=== PATIENT | female | born 1995 | race Caucasian/White ===

== ENCOUNTER 2018-04-25 21:29 | Emergency (ER) | payer OTHER ==
[~2018-04-25] VITALS: Ht 165.1 cm; Wt 72.1 kg
[~2018-04-25 21:29] MED LIST: PREN-385 PO
[2018-04-25 21:30] VITALS: BP 130/76
--- NOTE | 2018-04-25 21:40 | NUR ---
CO RIGHT 8/ HAND PAIN THAT RADIATES UP ARM S/P HITTING ARM AGAINST WALL WHILE PLAY-FIGHTING WITH LITTLE SISTER 1 HOUR AGO. -- BRUSING AND SWELLING NOTED TO WRIST. -- CAP REFILL <3 SECONDS, RADIAL PULSE STRONG. -- FINGER AND WRIST MOVEMENT LIMITED. -- PMH: DENIES -- RX: DENIES
--- NOTE | 2018-04-25 21:40 | NUR ---
PT AMBULATED TO BED 11
--- NOTE | 2018-04-25 22:37 | NUR ---
XRAY AT BEDSIDE.
--- NOTE | 2018-04-25 22:47 | NUR ---
PER ORDER FROM DR MCHUGH, THUMB SPICA SPLINT APPLIED TO PT R HAND, WRAPPED IN SHADE WRAP. +CSM
--- NOTE | 2018-04-25 23:02 | NUR ---
PATIENT WAITING IN LOBBY FOR CD.
[2018-04-25 23:05] VITALS: BP 124/79
--- NOTE | 2018-04-25 23:05 | NUR ---
Patient discharged with v/s stable. Written and verbal after care instructions given and explained. Patient alert, oriented and verbalized understanding of instructions. Ambulatory with steady gait. All questions addressed prior to discharge. ID band removed. Patient advised to follow up with PMD. Rx of IBUPROFEN 800MG given. Patient educated on indication of medication including possible reaction and side effects. Opportunity to ask questions provided and answered.
== END 2018-04-25 23:05 | disposition home or self-care (01) ==
LOC: MED 21:29
DX: M25.531 Pain in right wrist (principal); M79.641 Pain in right hand; Z79.899 Other long term (current) drug therapy
CPT/HCPCS: 73110; 73130; 99283; Q0092

== ENCOUNTER 2021-02-24 14:28 | Emergency (ER) | payer OTHER ==
[~2021-02-24] VITALS: Ht 165.1 cm; Wt 79.8 kg
[2021-02-24 15:01] VITALS: BP 137/62
[2021-02-24] MEDS ORDERED: AMOX-1000 PO (15:40)
[2021-02-24] MEDS ORDERED: IBUP-2213 PO (15:40)
--- NOTE | 2021-02-24 16:30 | NUR ---
ATTEMPTED TO D/C PT, NO ANSWER IN LOBBY/TENT
--- NOTE | 2021-02-24 16:45 | NUR ---
PT CLEARED FOR DISCHARGE, PT LEFT WITHOUT PAPERWORK, SENT ELECTRONIC PRESCRIPTIONS OF AUGMENTIN 875-125 AND IBUPROFEN FOR DENTAL ABSCESS.
== END 2021-02-24 16:45 | disposition home or self-care (01) ==
LOC: MED 14:28
DX: K04.7 Periapical abscess without sinus (principal); K02.9 Dental caries, unspecified
CPT/HCPCS: 99283

== ENCOUNTER 2021-06-23 12:56 | Emergency (ER) | payer OTHER ==
[~2021-06-23] VITALS: Ht 165.1 cm; Wt 77.1 kg
[~2021-06-23 12:56] MED LIST changes: +AMOX-1000 PO; +IBUP-2213 PO
[2021-06-23 13:04] VITALS: BP 119/76
--- NOTE | 2021-06-23 13:10 | NUR ---
PT AMB TO BED 10.
--- NOTE | 2021-06-23 13:42 | NUR ---
DR. TORRES AT PT BEDSIDE FOR FURTHER EVALUATION.
--- NOTE | 2021-06-23 13:44 | NUR ---
PRODUCT MARKETING INTERN AT PT BEDSIDE.
[2021-06-23] MEDS ORDERED: predniSONE 20 MG TAB PO ONE (13:45)
[2021-06-23] MEDS ORDERED: ALBUTEROL SULFATE/IPRATROPIU 3 ML SOL IH ONE (13:45)
[2021-06-23] MEDS ORDERED: guaiFENesin 20 MG/ML UDC PO ONE (13:45)
--- NOTE | 2021-06-23 13:49 | NUR ---
COLLECTED MILIND RENO, INFL A&B, STREP RAPID AND CULTURE GAVE TO FITNESS TRAINER AT PT BEDSIDE.
--- NOTE | 2021-06-23 13:49 | NUR ---
Magy munroe in [facility] - 06/23/21 at 1349 by MED1 RODOLFO RENO, INFL
--- NOTE | 2021-06-23 13:49 | NUR ---
RT BEDSIDE PROVIDING BREATHING TX
[2021-06-23] MEDS ORDERED: guaiFENesin DM 200/20 MG-10 ML 10 ML UDC ONE (13:52)
--- NOTE | 2021-06-23 14:10 | NUR ---
ENVIRONMENTAL INSPECTOR AT PT BEDSIDE.
--- NOTE | 2021-06-23 15:05 | NUR ---
PT RESTING IN BED, VSS, WILL CONTINUE TO MONITOR.
[2021-06-23] MEDS ORDERED: PRED20TA5 PO (15:26)
[2021-06-23] MEDS ORDERED: ALBU0.0912 INH (15:26)
[2021-06-23] MEDS ORDERED: PROM118S5 PO (15:26)
[2021-06-23] MEDS ORDERED: [UNRECOGNIZED DRUG - CODE] PO (15:27)
[2021-06-23 15:46] VITALS: BP 131/78
--- NOTE | 2021-06-23 15:47 | NUR ---
Patient discharged with v/s stable. Written and verbal after care instructions given FOR UPPER RESPIRATORY INFECTION AND ASTHMA ATTACK PREVENTION and explained. Patient alert, oriented and verbalized understanding of instructions. Ambulatory with steady gait. All questions addressed prior to discharge. ID band removed. Patient advised to follow up with PMD. Rx of ALBUTEROL, GUAIFENSIN, PREDNISONE, AND PROMETHAZINE given. Patient educated on indication of medication including possible reaction and side effects. Opportunity to ask questions provided and answered.
== END 2021-06-23 15:46 | disposition home or self-care (01) ==
LOC: MED 12:56
DX: J06.9 Acute upper respiratory infection, unspecified (principal); Z20.822 Contact with and (suspected) exposure to COVID-19; J45.901 Unspecified asthma with (acute) exacerbation; F17.290 Nicotine dependence, other tobacco product, uncomplicated; Z79.899 Other long term (current) drug therapy
CPT/HCPCS: 71045; 87081; 87426; 87804; 94640; 99285; J7512; Q0092

== ENCOUNTER 2021-07-10 05:30 | Emergency (ER) | payer OTHER ==
[~2021-07-10] VITALS: Ht 165.1 cm; Wt 79.4 kg
[~2021-07-10 05:30] MED LIST changes: +ALBU0.0912 INH; +PRED20TA5 PO; +PROM118S5 PO; +[UNRECOGNIZED DRUG - CODE] PO
[2021-07-10 05:34] VITALS: BP 142/78
[2021-07-10] MEDS ORDERED: IBUPROFEN 600 MG TAB PO ONE (05:40)
--- NOTE | 2021-07-10 05:40 | NUR ---
TO CHAIR C FOLLOWING TRIAGE
[2021-07-10] MEDS ORDERED: NAPR-54 PO (06:27)
--- NOTE | 2021-07-10 06:30 | NUR ---
PATIENT DISCHARGE BY ERMD.
== END 2021-07-10 06:30 | disposition home or self-care (01) ==
LOC: MED 05:30
DX: S50.01XA Contusion of right elbow, initial encounter (principal); J45.909 Unspecified asthma, uncomplicated; Z79.899 Other long term (current) drug therapy; W22.8XXA Striking against or struck by other objects, initial encounter; Y93.23 Activity, snow (alpine) (downhill) skiing, snowboarding, sledding, tobogganing and snow tubing; Y92.89 Other specified places as the place of occurrence of the external cause; Y99.8 Other external cause status
CPT/HCPCS: 73080; 99283

== ENCOUNTER 2022-05-02 22:39 | Emergency (ER) | payer MEDICAID, OTHER ==
[~2022-05-02] VITALS: Ht 165.1 cm; Wt 81.6 kg
[~2022-05-02 22:39] MED LIST changes: +NAPR-54 PO
[2022-05-02 22:45] VITALS: BP 136/94
--- NOTE | 2022-05-02 22:52 | NUR ---
TO LOBBY FOLLOWING TRIAGE
[2022-05-03] MEDS ORDERED: HYDROcodone/APAP 5/325 MG 1 TAB TAB PO ONE (01:55)
[2022-05-03] MEDS ORDERED: LIDO1ADH47 TP (02:34)
[2022-05-03] MEDS ORDERED: IBUP-2213 PO (02:34)
[2022-05-03 02:58] VITALS: BP 136/94
--- NOTE | 2022-05-03 02:58 | NUR ---
Patient discharged with v/s stable. Written and verbal after care instructions given and explained. Patient alert, oriented and verbalized understanding of instructions. Wheel Chair Assisted with to car. All questions addressed prior to discharge. ID band removed. Patient advised to follow up with PMD. Rx of MOTRIN AND LIDODERM given. Patient educated on indication of medication including possible reaction and side effects. Opportunity to ask questions provided and answered.
== END 2022-05-03 02:37 | disposition home or self-care (01) ==
LOC: MED 22:39
DX: S90.31XA Contusion of right foot, initial encounter (principal); J45.909 Unspecified asthma, uncomplicated; Z79.899 Other long term (current) drug therapy; Z79.1 Long term (current) use of non-steroidal anti-inflammatories (NSAID); Z79.2 Long term (current) use of antibiotics; W22.8XXA Striking against or struck by other objects, initial encounter; Y92.89 Other specified places as the place of occurrence of the external cause; Y93.89 Activity, other specified; Y99.8 Other external cause status
CPT/HCPCS: 73610; 73630; 99284

== ENCOUNTER 2023-04-16 09:38 | Emergency (ER) | payer MEDICAID, OTHER ==
[~2023-04-16] VITALS: Ht 165.1 cm; Wt 90.7 kg
[~2023-04-16 09:38] MED LIST changes: +LIDO1ADH47 TP
[2023-04-16 09:56] VITALS: BP 124/79; PULSE 91; RESP 18; TEMP 98.3; O2SAT 97
[2023-04-16] MEDS ORDERED: ALBU0.0912 IH (10:43)
[2023-04-18] MEDS ORDERED: ALBU0.0912 IH (21:42)
== END 2023-04-16 10:54 | disposition home or self-care (01) ==
LOC: MED 09:38
DX: J45.20 Mild intermittent asthma, uncomplicated (principal); Z76.0 Encounter for issue of repeat prescription; Z79.899 Other long term (current) drug therapy
CPT/HCPCS: 99281